=== PATIENT | male | born 1955 | race Hispanic/Latino ===

== ENCOUNTER 2020-05-22 10:07 | Outpatient (CLI) | payer OTHER ==
--- NOTE | 2020-05-22 18:34 | RAD ---
LUMBAR SPINE THREE VIEWS: 05/22/20 Comparison is made with the 06/04/15 study. No fracture, dislocation, or disc space narrowing was seen. There has been no adverse interval change. The SI joints show no change as well. Some fusion on the top part of the symphysis of the pelvis was noted as before. IMPRESSION: No acute finding. POS: HOME
== END 2020-05-22 10:08 | disposition home or self-care (01) ==
LOC: BURRAD 10:07
PROVIDERS: ATTEND Nurse Practitioner Family
DX: M54.5 Low back pain (principal)
CPT/HCPCS: 72100

== ENCOUNTER → 2020-07-23 | Emergency (ER) | payer OTHER, SELFPAY ==
[~2020-07-23] MED LIST: Bacitracin 1 PK ONE
== END ==
LOC: BURERS 16:51
DX: S71.112A Laceration without foreign body, left thigh, initial encounter (principal); E11.9 Type 2 diabetes mellitus without complications; Z79.84 Long term (current) use of oral hypoglycemic drugs; W26.8XXA Contact with other sharp object(s), not elsewhere classified, initial encounter; Y99.0 Civilian activity done for income or pay
CPT/HCPCS: 12002

== ENCOUNTER 2021-03-11 16:23 | Outpatient (CLI) | payer OTHER | END 2021-03-11 16:24 | disposition home or self-care (01) | LOC: BURRAD 16:23 | PROVIDERS: ATTEND Nurse Practitioner Family | DX: M25.561 Pain in right knee (principal); M79.5 Residual foreign body in soft tissue ==